=== PATIENT | female | born 1940 | race Caucasian/White ===

== ENCOUNTER 2017-03-09 10:03 | Inpatient (IN) | payer MEDICARE, OTHER ==
[~2017-03-09] VITALS: Ht 154.9 cm; Wt 92.0 kg
[2017-03-09] VITALS (7 sets, daily range): BP systolic 161–168; BP diastolic 78; PULSE 70–87; RESP 18–20; TEMP 98.3; Ht 154.9 cm; Wt 92.0 kg
[2017-03-09 10:29] LABS: BASOPHIL # 0.1 10^3/ul (0.0-0.1); BASOPHILS % 0.6 % (0.0-2.0); EOSINOPHILS # 0.4 10^3/ul (0.0-0.5); EOSINOPHILS % 3.3 % (0.0-7.0); HEMATOCRIT 41.7 % (37.0-47.0); HEMOGLOBIN 13.3 g/dl (12.0-16.0); LYMPHOCYTES # 4.1 10^3/ul (0.8-2.9); LYMPHOCYTES % 37.2 % (15.0-51.0); MEAN CORPUSCULAR HGB CONC 31.9 g/dl (32.0-37.0); MEAN PLATELET VOLUME 10.4 fl (7.4-10.4); MONOCYTE # 1.2 10^3/ul (0.3-0.9); MONOCYTES % 10.6 % (0.0-11.0); NEUTROPHIL # 5.2 10^3/ul (1.6-7.5); PLATELET COUNT 351 10^3/UL (140-415); RED BLOOD COUNT 4.58 10^6/ul (4.20-5.40); RED CELL DISTRIBUTION WIDTH 13.6 % (11.5-14.5); WHITE BLOOD COUNT 10.9 10^3/ul (4.8-10.8)
[2017-03-09 10:30] LABS: AADO2 Arterial 320.7 mmHg (7.0-24.0); Allen Test ACCEPTAB; Arterial Base Excess -3.1 mmol/L (-3.0-3); Arterial COHb 0.3 % (0.0-3.0); Arterial Fraction of Oxyhgb 99.1 % (93.0-99.0); Arterial HCO3 25.1 mmol/L (22.0-26.0); Arterial MetHb 0.2 % (0.0-1.5); Arterial Total Hemglobin 13.7 g/dl (12.0-18.0); Blood Gas IEPAP 15/5; MODE MASK - BIPAP
[2017-03-09 10:53] LABS: INR 0.94; PROTIME 12.7 Sec (11.9-14.9)
[2017-03-09 10:55] LABS: ALBUMIN 3.9 g/dl (3.3-4.9); BILIRUBIN,INDIRECT 0.1 mg/dl (0-1.1); BILIRUBIN,TOTAL 0.1 mg/dl (0.2-1.3); CREATININE 0.93 mg/dl (0.44-1.00); POTASSIUM 3.7 mmol/L (3.5-5.1); TOTAL PROTEIN 7.8 g/dl (6.1-8.1)
[2017-03-09] MEDS ORDERED: SOD CHLORIDE 0.9% 100 ML ONE (11:01)
[2017-03-09] MEDS ORDERED: IOHEXOL 100 ML ONE (11:01)
--- NOTE | 2017-03-09 11:02 | RADRPT ---
PROCEDURE: Chest x-ray CLINICAL INDICATION: Shortness of breath TECHNIQUE: Chest single view COMPARISON: None FINDINGS: There is moderate cardiomegaly and an sclerotic aortic calcification. Increased bilateral interstiti al markings are seen. This may represent interstitial edema versus interstitial pneumonia. Costophre thuy angles are sharp. Bones are osteopenic. IMPRESSION: 1. Moderate cardiomegaly and an sclerotic aortic calcification. 2. Increased bilateral interstitial markings may represent interstitial edema versus interstitial p neumonia RPTAT: HH .Jesus Gao MD, MD Date Time Electronically viewed and signed by .Jesus Gao MD, MD on 03/09/2017 11:02 .W/
[2017-03-09 11:06] LABS: TROPONIN-I 0.042 ng/ml (0.00-0.12)
[2017-03-09] MEDS ORDERED: SODIUM CHLORIDE 0.9% 1L BAG IV* STA (11:20)
[2017-03-09] MEDS ORDERED: CEFEPIME 2GM/50 ML (PMX) 50 ML IVPB STA (11:20)
[2017-03-09] MEDS ORDERED: VANCOMYCIN 1 GM (PMX) 250 ML IVPB ONE (11:30)
--- NOTE | 2017-03-09 11:57 | RADRPT ---
PROCEDURE: CTA Chest with contrast and with 3-D reconstructions CLINICAL INDICATION: Shortness of breath, pulmonary embolism TECHNIQUE: The study was performed utilizing multidetector CT scanner. Direct spiral axial section s were obtained from the thoracic inlet to the upper abdomen with the use of intravenous contrast ma terial (100 cc of Omnipaque 350). Sagittal, coronal and 3-D reformations were obtained. The images w ere reviewed on a PACS workstation. DLP 875.07 mGycm CTDIvol 7.04, 147.88, 7.04, 49.29, 19.94 mGy One or more of the following dose reduction techniques were used: - Automated exposure control. - Adjustment of the mA and/or kV according to patient size. - Use of iterative reconstruction technique. COMPARISON: No prior studies are available for comparison. FINDINGS: There are no pulmonary emboli. The right pulmonary artery measures up to 3.5 cm in diameter, possibly due to pulmonary artery hyper tension. There are trace bilateral pleural effusions. There is moderate pulmonary vascular congestion. There is no pneumothorax. Heart size is within normal limits. There is no pericardial fluid. The aorta is within normal limi ts. There are no enlarged axillary or mediastinal lymph nodes. 2 sub-centimeter dystrophic calcifications are identified adjacent to the gallbladder within the migel er which are likely the sequela of prior infection/inflammation. Osseous and soft tissue structures are within normal limits. IMPRESSION: No CT evidence for pulmonary embolus. Dilatation of the right pulmonary artery to 3.5 cm, possibly due to pulmonary artery hypertension. Moderate pulmonary vascular congestion with trace bilateral pleural effusions. RPTAT: EE Physician Lucho Date Time Electronically viewed and signed by Physician Lucho on 03/09/2017 11:57 /
[2017-03-09] MEDS ORDERED: ONDANSETRON 4 MG INJ IV PRN ×2 (12:00→13:30)
[2017-03-09] MEDS ORDERED: ACETAMINOPHEN 325 MG TAB PO PRN ×2 (12:00→13:30)
[2017-03-09] MEDS ORDERED: HYDR-3672 PO (12:45)
[2017-03-09] MEDS ORDERED: BENA40TA41 PO (12:45)
[2017-03-09] MEDS ORDERED: CHOL100062 PO (12:46)
[2017-03-09] MEDS ORDERED: CLOP75TA27 PO (12:46)
[2017-03-09] MEDS ORDERED: DICL75TA2 PO (12:46)
[2017-03-09] MEDS ORDERED: SIMV20TA PO (12:46)
--- NOTE | 2017-03-09 12:59 | ERD ---
ER Documentation Chief Complaint Chief Complaint TOMY RA FOR EVAL OF SOB. ON CPAP ON ARRIVAL. HPI Patient is a 76-year-old female with CHF, COPD, hypertension, and diabetes who presents with shortness of breath. The patient was brought in by ambulance. Please note the history and physical exam is limited secondary to the patient's shortness of breath at this time. The patient was cyanotic and wheezing per paramedics. They placed her on CPAP and she improved but is still having respiratory distress. She was given nitroglycerin and a nebulizer treatment. Upon review of old medical records this is the patient's first visit to the emergency department. ROS All systems reviewed and are negative except as per history of present illness. Medications Home Meds Reported Medications Cholecalciferol* (Vitamin D3*) 1,000 Unit Tablet, 2000 UNIT PO DAILY, TAB 03/09/17 Clopidogrel Bisulfate (Clopidogrel) 75 Mg Tablet, 75 MG PO DAILY, #30 TAB 03/09/17 Diclofenac Sodium* (Diclofenac Sodium*) 75 Mg Tablet.dr, 75 MG PO BID, #60 TAB 03/09/17 Simvastatin* (Zocor*) 20 Mg Tablet, 20 MG PO QHS, #30 TAB 03/09/17 Benazepril Hcl* (Benazepril Hcl*) 40 Mg Tablet, 40 MG PO DAILY, #30 TAB 03/09/17 Hydralazine Hcl* (Hydralazine Hcl*) 50 Mg Tab, 100 MG PO TID, #180 TAB 03/09/17 Allergies Allergies: Coded Allergies: No Known Allergy (Unverified , 03/09/17) PMhx/Soc History of Surgery: No Anesthesia Reaction: No Hx Neurological Disorder: No Hx Respiratory Disorders: No Hx Cardiac Disorders: No Hx Psychiatric Problems: No Hx Miscellaneous Medical Probl: No Hx Alcohol Use: No Hx Substance Use: No Hx Tobacco Use: No Smoking Status: Never smoker FmHx Unable to obtain Physical Exam Vitals Vital Signs Date Time Temp Pulse Resp B/P Pulse Ox O2 Delivery O2 Flow Rate FiO2 03/09/17 12:00 98.3 87 20 156/57 100 BIPAP 10.0 03/09/17 11:00 98.3 87 20 156/57 100 BIPAP 10.0 03/09/17 10:26 10 03/09/17 10:21 73 99 100 03/09/17 10:08 97.6 89 30 156/95 96 Physical Exam Const: Severe distress Head: Atraumatic Eyes: Normal Conjunctiva ENT: Normal External Ears, Nose and Mouth. Neck: Full range of motion..~ No meningismus. Resp: Decreased breath sounds bilaterally Cardio: Regular rate and rhythm, no murmurs Abd: Soft, non tender, non distended. Normal bowel sounds Skin: No petechiae or rashes Back: No midline or flank tenderness Ext: No cyanosis, or edema Neur: Awake but confused Result Diagram: 03/09/17 1015 03/09/17 1015 Results 24 hrs Laboratory Tests Test 03/09/17 10:06 03/09/17 10:15 Blood Gas Specimen Source Blood arterial Arterial Blood Date Drawn 03/09/2017 10:20:06 AM Arterial Blood pH (Temp corrected) 7.252 Arterial Blood pCO2 (Temp correct) 58.2mmhg Arterial Blood pO2 (Temp corrected) 334.1mmHG Arterial Blood HCO3 25.1mmol/L Arterial Blood Base Excess -3.1mmol/L Arterial Blood Oxygen Saturation 99.6mmHG Freddie Test ACCEPTAB Arterial Blood Gas Puncture Site Right Radial Arterial Blood Carboxyhemoglobin 0.3% Arterial Blood Methemoglobin 0.2% Blood Gas A-a O2 Differential 320.7mmHg Oxyhemoglobin Percent 99.1% Total Hemoglobin 13.7g/dl Blood Gas Temperature 37.0C Blood Gas Respiration Rate 12.0 Blood Gas Actual Respiration Rate 21 Blood Gas Modality MASK - BIPAP FiO2 100.0% Blood Gas IPAP/EPAP Ratio 15/5 Blood Gas Critical [facility] Notified Whom JLD Blood Gas Notified Time 03/09/2017 10:30:05 AM White Blood Count 10.910^3/ul Red Blood Count 4.5810^6/ul Hemoglobin 13.3g/dl Hematocrit 41.7% Mean Corpuscular Volume 91.0fl Mean Corpuscular Hemoglobin 29.0pg Mean Corpuscular Hemoglobin Concent 31.9g/dl Red Cell Distribution Width 13.6% Platelet Count 57603^3/UL Mean Platelet Volume 10.4fl Neutrophils % 48.0% Lymphocytes % 37.2% Monocytes % 10.6% Eosinophils % 3.3% Basophils % 0.6% Nucleated Red Blood Cells % 0.0/100WBC Neutrophils # 5.210^3/ul Lymphocytes # 4.110^3/ul Monocytes # 1.210^3/ul Eosinophils # 0.410^3/ul Basophils # 0.110^3/ul Nucleated Red Blood Cells # 0.010^3/ul Prothrombin Time 12.7Sec Prothrombin Time Ratio 1.0 INR International Normalized Ratio 0.94 Activated Partial Thromboplast Time 23.0Sec Sodium Level 143mmol/L Potassium Level 3.7mmol/L Chloride Level 106mmol/L Carbon Dioxide Level 24mmol/L Anion Gap 17 Blood Urea Nitrogen 20mg/dl Creatinine 0.93mg/dl Glucose Level 201mg/dl Lactic Acid Level 5.1mmol/L Calcium Level 9.0mg/dl Total Bilirubin 0.1mg/dl Direct Bilirubin 0.00mg/dl Indirect Bilirubin 0.1mg/dl Aspartate Amino Transf (AST/SGOT) 41IU/L Alanine Aminotransferase (ALT/SGPT) 37IU/L Alkaline Phosphatase 90IU/L Troponin I 0.042ng/ml Total Protein 7.8g/dl Albumin 3.9g/dl Globulin 3.90g/dl Albumin/Globulin Ratio 1.00 Current Medications Medications (Trade) Dose Ordered Sig/Bartolo Route PRN Reason Start Time Stop Time Status Last Admin Dose Admin IV Flush 10 ml 10 ml STK-MED ONCE .ROUTE 03/09/17 11:01 03/09/17 11:02 DC Sodium Chloride 100 ml @ ud STK-MED ONCE .ROUTE 03/09/17 11:01 03/09/17 11:02 DC Iohexol (Omnipaque) 100 ml @ ud STK-MED ONCE .ROUTE 03/09/17 11:01 03/09/17 11:02 DC Sodium Chloride 2480 ml 2,480 ml BOLUS OVER 2 HOURS STAT IV* 03/09/17 11:20 03/09/17 11:21 DC 03/09/17 12:21 Cefepime HCl 50 ml @ 100 mls/hr ONCE STAT IVPB 03/09/17 11:20 03/09/17 11:49 DC 03/09/17 12:19 Vancomycin HCl (Vancocin) 250 ml @ 125 mls/hr ONCE ONCE IVPB 03/09/17 11:30 03/09/17 13:29 Ondansetron HCl (Zofran Inj) 4 mg ER BRIDGE PRN IV NAUSEA AND/OR VOMITING 03/09/17 12:00 03/10/17 11:59 Acetaminophen (Tylenol Tab) 650 mg ER BRIDGE PRN PO MILD PAIN/FEVER 03/09/17 12:00 03/10/17 11:59 Procedures/MDM EKG read by me: Rate/Rhythm: Regular rate and rhythm at a normal rate Intervals: Normal Impression: No evidence of ischemia or arrhythmia Chest x-ray shows infiltrates per radiology. Admit MDM: Patient's infectious symptoms have not stabilized and the patient is at risk of rapid decompensation. The patient will be admitted for careful hydration, antibiotic therapy, and infectious source control. Severe Sepsis criteria: Infectious source: Pneumonia End organ damage indicated by: Lactate greater than 2 Sepsis Management: Time of recognition of sepsis: 10:15 AM Within 3 hours of recognition: Blood cultures x 2 before broad-spectrum antibiotics: Yes 30 ml/kg NS bolus Completed Initial lactate 5.1 Repeat lactate pending Time of recognition of septic shock: 10:15 AM Septic Shock Assessment: Any lactic acid > 4.0 yes Persistent hypotension (SBP < 90 or 40 mmHg drop, MAP < 65) despite 30 mL/kg IV fluid bolus No Volume Re-assessment for Septic Shock (post 30 ml/kg bolus): Temp 98.3, BP 156/57, HR 87, RR 20, Pox 100% Heart Regular rate & rhythm Lungs decreased breath sounds bilaterally Skin Warm & dry Cap Refill Less than 2 seconds Peripheral pulses Radially present Persistent Hypotension Treatment: Comfort care No Central line Not Required Vasopressor started Not required I considered further perfusion assessment with CVP measurement, SCVO2, bedside ultrasound volume assessment, passive leg raise, trial of further fluid bolus. And proceeded with 30 ml/kg fluid bolus of NSS, broad spectrum antibiotics, and admission. Accepting Care Team Current data and ongoing care discussed. Admitting Physician: Dr. Worrell from the panel team Registered Nurse Bone Marrow Transplant(s): None Outstanding Data: Culture results and repeat lactic acid Critical Care: Critical care time 35 minutes excluding all billable procedures Emergent fluid management while maintaining close respiratory support. Provision of immediate and broad-spectrum antibiotic therapy. Simultaneous assessment for possible sources in order to direct targeted therapy. Consideration for invasive and chemical support to prevent cardiopulmonary collapse. Departure Diagnosis: Primary Impression: Septic shock Additional Impressions: Shortness of breath Respiratory failure Chronicity: acute Respiratory failure complication: hypoxia and hypercapnia Qualified Code: J96.01 - Acute respiratory failure with hypoxia and hypercapnia Pneumonia Pneumonia type: due to unspecified organism Laterality: unspecified laterality Lung location: unspecified part of lung Qualified Code: J18.9 - Pneumonia due to infectious organism, unspecified laterality, unspecified part of lung Condition: Serious VEDA DALE MD Mar 09, 2017 12:59
[2017-03-09] MEDS ORDERED: ACETAMINOPHEN 650 MG SUPP PR PRN (13:30)
[2017-03-09] MEDS ORDERED: VANCOMYCIN IV PER PHARMACY XX SCH (13:30)
[2017-03-09] MEDS ORDERED: morphine 2 MG INJ IV PRN (13:30)
[2017-03-09] MEDS ORDERED: NACL 0.9% 3 ML SYG IV SCH (13:30)
[2017-03-09] MEDS ORDERED: GLUCAGON 1 MG INJ IM PRN (14:00)
[2017-03-09] MEDS ORDERED: GLUCOSE GEL 15 GRAM TUBE BUCCAL PRN (14:00)
[2017-03-09] MEDS ORDERED: GLUCOSE GEL 15 GRAM TUBE PO PRN ×2 (14:00)
[2017-03-09] MEDS ORDERED: DEXTROSE 50% 50 ML SYRINGE IV PRN ×2 (14:00)
--- NOTE | 2017-03-09 14:29 | HP ---
Date/Time of Note Date/Time of Note DATE: 03/09/17 TIME: 14:10 Assessment/Plan VTE Prophylaxis VTE Prophylaxis Intervention: LMWH Assessment/Plan Chief Complaint/Hosp Course 76-year-old female with past medical history of coronary artery disease with stent placed, COPD, congestive heart failure, hypertension, hyperlipidemia, peripheral vascular disease, brought to the emergency room for evaluation of worsening shortness of breath and wheezing started this morning who found to have hypoxic respiratory failure with pneumonia and sepsis. 1. Hypercapnic/Hypoxemic respiratory failure requiring BiPAP, Most likely 2/2 COPD exacerbation .Differentials considered and will be worked up: Possible CHF exacerbation. Status: Acute. Remarks: Needs inpatient admission -Pulmonary consult. -Titrate O2 down to keep SPO2 greater than 92%. -[id number] and as needed nebulizers, judicious IV steroid. -Follow-up ABGs and x-rays as needed. 2. Sepsis most likely secondary to pneumonia. Status: Acute. Remarks: Needs IV antibiotics. -Patient will be placed on cefepime and vancomycin. Judicious IV fluids in the setting of #5 -Follow-up cultures 3. Chronic obstructive pulmonary disease. Status: Chronic. Remarks: In exacerbation. -[id number] and as needed nebulizers, IV steroids. -Patient needs better outpatient management on COPD maintenance on discharge. 4. Coronary artery disease with PTCA/stents. Status: Chronic. Remarks: Stable -Resume Plavix/BILLIE inhibitors/Statin. 5. Reported history of congestive heart failure. Status: Chronic. Remarks: Possible exacerbation. -Obtain 2D echocardiogram. -Insert Borrero, monitor volume status closely and implement diuretics as needed. -Resume home medications 6. Essential hypertension. Status: Chronic. Remarks: Stable. -Resume BILLIE inhibitors and hydralazine that patient takes at home. 7. Hyperlipidemia. Status: Chronic. -Resume statin. Obtain a lipid panel as well. 8. Peripheral vascular disease with venous stasis ulcers. Status post vascular intervention to bilateral lower extremity. Status: Chronic. Remarks: Stable. -Continue Plavix. 9. Vitamin D deficiency. Status: Chronic. -Resume vitamin D supplements that patient takes at home. DVT prophylaxis: Lovenox PUD prophylaxis: Pepcid We will order a bedside swallow eval and if patient passed, she will be advanced with low-cholesterol, low-fat, 2 g sodium diet. Rest of the management depend on hospital course and recommendation from [employer] security consultant. Approximately 60 minutes was spent on this history and physical. Patient was seen in collaboration with Problems: HPI/ROS Admit Date/Time Admit Date/Time Hx of Present Illness This is a 76-year-old female who is also a former smoker with multiple comorbidities including COPD, venous stasis ulcers of left lower extremity with stenting to bilateral femoral arteries a month ago, coronary artery disease with stenting in the past, congestive heart failure, hypertension , dyslipidemia, vitamin D deficiency, degenerative joint disease, who was brought to the emergency room for evaluation of worsening shortness of breath and wheezing started this morning. In the emergency room, patient was placed on CPAP and was given nebulizer treatment with improvement in her symptoms. A blood gas showed pH 7.252, PCO2 58.2, bicarb 25.1, PO2 334.1 and was done on 100 % FiO2 on BiPAP. Chest x-ray showed increased bilateral interstitial markings, interstitial edema versus interstitial pneumonia. There was moderate cardiomegaly. A CTA chest was negative for any pulmonary embolism. There was moderate pulmonary vascular congestion with trace bilateral pleural effusion in the CT. Patient's initial labs showed WBC 10,900, lactic acid 5.1. Vital signs within acceptable range. Patient was given cefepime, IV vancomycin and fluid resuscitation for sepsis in the emergency room and was then admitted. At my encounter with the patient, she denied any chest pain, palpitation, nausea , vomiting, abdominal pain, dizziness, lightheadedness, or other constitutional symptoms. Patient's work of breathing heart tremendously improved and she is saturating normal on 4 L nasal cannula. ROS A 12 point review of system was assessed and is negative other than what is mentioned in HPI. PMH/Family/Social Past Medical History See HPI Past Surgical History See HPI Social History Former smoker who quit 5 years ago. Former amphetamine use. Smoking Status: Never smoker Exam/Review of Systems Vital Signs Vitals Vital Signs Date Time Temp Pulse Resp B/P Pulse Ox O2 Delivery O2 Flow Rate FiO2 03/09/17 12:58 95 3.0 03/09/17 12:00 98.3 87 20 156/57 BIPAP 03/09/17 10:21 100 Exam Exam General: Overweight, chronically ill looking female, not in any acute distress . HEENT: Normocephalic, Atraumatic, No laceration or hematoma; Eyes: PEERL, Conjunctiva clear, Anicteric sclera Neck: Supple without any lymphadenopathy, nontender, no JVD, no carotid bruits, trachea midline, no thyromegaly Cardiac: S1, S2 auscultated, regular rhythm and rate, no mumurs or gallop Pulmonary: Diminished breath sound bibasilar. Scattered wheezing upper lobes. Normal respiratory effort. GI: Abdomen normal to inspection. Soft, non tender, non- distended, no masses, no rebound tenderness or guarding. Bowel sounds active on all four quadrants Genitourinary: Deferred Extremities: Left lower extremity with intact dressing. No cyanosis, clubbing, or edema. Pulses [2+] bilaterally. Full ROM on all four extremities. No focal weakness appreciated. Neurologic: Alert to person, place, time, and situation. Affect appropriate, intact sensation. Skin: Clean,dry, and intact. No ecchymosis, no rashes, or lesions Labs Result Diagram: 03/09/17 1015 03/09/17 1015 Medications Medications Current Medications Vancomycin HCl (Vancocin) 250 ml @ 125 mls/hr ONCE ONCE IVPB Last administered on 03/09/17t 13:07; Admin Dose 125 MLS/HR; Start 03/09/17 at 11: 30; Stop 03/09/17 at 13:29 MARLENE MITCHELL NP Mar 09, 2017 14:22
[2017-03-09] MEDS ORDERED: METHYLPREDNISOLONE 125 MG INJ IV ONE (14:30)
[2017-03-09] MEDS ORDERED: ALBUTEROL/IPRATROPIUM (NEB) 3 ML AMP HHN PRN (14:30)
[2017-03-09] MEDS: SOD CHLORIDE 0.9% 1,000 ML IV SCH (14:45)
[2017-03-09] MEDS ORDERED: OXYB5TAB22 PO (15:21)
[2017-03-09] MEDS ORDERED: PARO20TA58 PO (15:21)
[2017-03-09] MEDS ORDERED: VANCOMYCIN 500MG/NS (PMX) 100 ML IVPB SCH (15:30)
[2017-03-09] MEDS: INSULIN ASPART [NOVOLOG] 3 ML PEN SC SCH ×2 (17:55→21:00)
[2017-03-09] MEDS: ALBUTEROL/IPRATROPIUM (NEB) 3 ML AMP HHN SCH (19:59)
--- NOTE | 2017-03-09 20:20 | CONS ---
DATE OF ADMISSION: 03/09/2017 DATE OF CONSULTATION: 03/09/2017 TYPE OF CONSULTATION: Pulmonary. REASON FOR CONSULTATION: Shortness of breath. Thank you, Dr. Worrell, for this consultation. HISTORY OF PRESENT ILLNESS: This is a 76-year-old lady with a longstanding history of tobacco use, quit smoking 4 years ago, comes in with a several-day history of increasing shortness of breath, ort hopnea, PND, cough and congestion, found on chest x-ray to have bilateral infiltrates, mild leukocyt osis and lactic acidosis with a pH of 7.1 and initial arterial blood gas demonstrated hypercapnia wi th pH of 7.25, pCO2 of 58, pO2 of 334, bicarbonate 25. PAST MEDICAL HISTORY: Tobacco use, peripheral vascular disease status post recent revascularization of left lower extremity by Dr. Miranda at [facility], hypertension, hyperlipidemia. MEDICATIONS: Per chart. ALLERGIES: NONE. SOCIAL HISTORY: She is an ex-smoker, quit smoking 4 years ago, prior to that half pack per day for many years. No alcohol, no history of drug use. FAMILY HISTORY: Noncontributory. SYSTEMS REVIEW: A 12-point review of systems negative other than that mentioned above. PHYSICAL EXAMINATION: GENERAL: Well-nourished, well-developed lady, comfortable at rest, talking in full and complete sen tences. VITAL SIGNS: Currently afebrile. Pulse is 87, blood pressure 156/60, O2 saturation 96% on 3 L nasa l cannula. NECK: Supple. No JVD or lymphadenopathy. CARDIAC: S1, S2, no added sounds or murmurs. CHEST: Diminished air entry bilaterally. ABDOMEN: Soft, nontender. No guarding or rebound. EXTREMITIES: No cyanosis, clubbing, or edema. NEUROLOGIC: Grossly intact. LABORATORY DATA: ABG: pH 7.25, pCO2 of 58, pO2 334. White count 10.9, hemoglobin 13.3. Lactic ac id initially 5.1, now 1.1. INR was 0.94. DIAGNOSTIC DATA: Chest CT angiogram showed no pulmonary embolus, but patchy bilateral infiltrates. Chest x-ray showed mild cardiomegaly, interstitial edema versus pneumonia. EKG showed no acute isc hemic changes. IMPRESSION AND PLAN: 1. Hypoxemic and hypercapnic, history of respiratory failure, likely secondary to combination of: 1. Chronic obstructive pulmonary disease exacerbation. 2. Healthcare-associated pneumonia with possible component of influenza. 3. Underlying obstructive sleep apnea. 4. Underlying chronic obstructive pulmonary disease. The patient will require 1. Bronchodilators. 2. Supplemental O2. 3. Short steroid taper. 4. Wound care evaluation of left lower extremity. 5. DVT and GI prophylaxis. 6. Outpatient sleep study and pulmonary function testing. Dictated By: FROYLAN SUAZO/PEPE Conf#: [id number] DID#: [id number]
[2017-03-09] MEDS ORDERED: PAROXETINE 20 MG TAB PO SCH (21:00)
[2017-03-09] MEDS ORDERED: OXYBUTYNIN (XL) 5 MG TAB PO SCH (21:00)
[2017-03-09] MEDS: ATORVASTATIN 10 MG TAB PO SCH (21:16)
[2017-03-09] MEDS: FAMOTIDINE 20 MG INJ IV SCH (21:16)
[2017-03-09] MEDS: CEFEPIME 1GM/50 ML (PMX) 50 ML IVPB SCH (21:16)
[2017-03-09] MEDS: METHYLPREDNISOLONE 40 MG INJ IV SCH (22:00)
[2017-03-10] VITALS (15 sets, daily range): BP systolic 139–173; BP diastolic 62–73; PULSE 70–141; RESP 16–20
[2017-03-10] MEDS: ALBUTEROL/IPRATROPIUM (NEB) 3 ML AMP HHN SCH ×5 (00:54→20:13)
[2017-03-10] MEDS: ACCU-CHEK XX SCH (02:00)
[2017-03-10] MEDS ORDERED: hydrALAzine 20 MG INJ IV PRN (02:00)
[2017-03-10] MEDS: METHYLPREDNISOLONE 40 MG INJ IV SCH ×3 (06:09→21:05)
[2017-03-10 07:21] LABS: ADD UMIC YES; UR ASCORBIC ACID NEGATIVE (NEGATIVE); UR BILIRUBIN (Dip) NEGATIVE (NEGATIVE); UR BLOOD (Dip) NEGATIVE (NEGATIVE); UR CLARITY CLEAR (CLEAR); UR COLOR YELLOW (YELLOW); UR GLUCOSE (Dip) 1+ mg/dL (NEGATIVE); UR KETONES (Dip) NEGATIVE (NEGATIVE); UR LEUKOCYTE ESTERASE (Dip) NEGATIVE Leu/ul (NEGATIVE); UR MUCUS FEW /HPF (NONE SEEN); UR NITRITE (Dip) NEGATIVE (NEGATIVE); UR RBC 4 /HPF (0-5); UR SPECIFIC GRAVITY (Dip) 1.045 (1.003-1.030); UR TOTAL PROTEIN (Dip) 2+ mg/dl (NEGATIVE); UR UROBILINOGEN (Dip) NEGATIVE (NEGATIVE)
[2017-03-10 08:02] LABS: BASOPHILS % 0.1 % (0.0-2.0); HEMATOCRIT 35.7 % (37.0-47.0); HEMOGLOBIN 11.4 g/dl (12.0-16.0); LYMPHOCYTES % 13.3 % (15.0-51.0); MEAN CORPUSCULAR HEMOGLOBIN 28.6 pg (29.0-33.0); MEAN CORPUSCULAR HGB CONC 31.9 g/dl (32.0-37.0); MEAN CORPUSCULAR VOLUME 89.5 fl (82.0-101.0); MEAN PLATELET VOLUME 10.5 fl (7.4-10.4); MONOCYTE # 0.1 10^3/ul (0.3-0.9); MONOCYTES % 1.5 % (0.0-11.0); NEUTROPHIL # 6.3 10^3/ul (1.6-7.5); NEUTROPHILS % 84.7 % (39.0-77.0); PLATELET COUNT 309 10^3/UL (140-415); RED BLOOD COUNT 3.99 10^6/ul (4.20-5.40); RED CELL DISTRIBUTION WIDTH 13.3 % (11.5-14.5); WHITE BLOOD COUNT 7.4 10^3/ul (4.8-10.8)
[2017-03-10 08:20] LABS: ALBUMIN 3.2 g/dl (3.3-4.9); ALBUMIN/GLOBULIN RATIO 0.94; BILIRUBIN,INDIRECT 0.2 mg/dl (0-1.1); BILIRUBIN,TOTAL 0.2 mg/dl (0.2-1.3); CHOL/HDL RATIO 1.8 RATIO; CREATININE 0.92 mg/dl (0.44-1.00); MAGNESIUM 1.8 mg/dl (1.7-2.5); PHOSPHORUS 3.4 mg/dl (2.5-4.9); POTASSIUM 3.8 mmol/L (3.5-5.1); TOTAL PROTEIN 6.6 g/dl (6.1-8.1)
[2017-03-10] MEDS: CEFEPIME 1GM/50 ML (PMX) 50 ML IVPB SCH (08:39)
[2017-03-10] MEDS: FAMOTIDINE 20 MG INJ IV SCH (08:39)
[2017-03-10] MEDS: BENAZEPRIL 40 MG TAB PO SCH (08:39)
[2017-03-10] MEDS: CLOPIDOGREL 75 MG TAB PO SCH (08:39)
[2017-03-10] MEDS: CHOLECALCIFEROL 1,000 UNIT TAB PO SCH (08:39)
[2017-03-10 08:44] LABS: THYROID STIMULATING HORMONE 0.53 MIU/L (0.465-4.680)
[2017-03-10] MEDS: INSULIN ASPART [NOVOLOG] 3 ML PEN SC SCH ×4 (08:50→21:23)
[2017-03-10] MEDS: ENOXAPARIN 40 MG/0.4 ML SYG SC SCH (08:50)
[2017-03-10] MEDS: FUROSEMIDE 40 MG INJ IV SCH (12:22)
--- NOTE | 2017-03-10 12:44 | PN ---
Date/Time of Note Date/Time of Note DATE: 03/10/17 TIME: 12:33 Assessment/Plan VTE Prophylaxis VTE Prophylaxis Intervention: LMWH Lines/Catheters IV Catheter Type (from Nrsg): Peripheral IV Assessment/Plan Chief Complaint/Hosp Course 1. Acute hypercapnic and hypoxic respiratory distress likely secondary to CHF exacerbation and COPD exacerbation CTA chest shows pulmonary edema, no PE Start Lasix Follow-up and 2D echo Continue BiPAP Neurology consultation appreciated -Titrate O2 down to keep SPO2 greater than 92%. -[id number] and as needed nebulizers, IV steroid. -Follow-up ABGs and x-rays as needed. 2. Sepsis possibly secondary to COPD exacerbation/bronchitis Switch antibiotics to Rocephin and azithromycin 3. History of CHF Follow-up on echo Lasix started Continue home meds 4. Coronary artery disease with PTCA/stents. Continue Plavix/BILLIE inhibitors/Statin. 5. Peripheral vascular disease with venous stasis ulcers. Status post vascular intervention to bilateral lower extremity. -Continue Plavix. 6. Essential hypertension. Continue BILLIE inhibitors and hydralazine that patient takes at home. 7. Hyperlipidemia. Continue statin, LDL at 53 Prophylaxis: Lovenox Problems: Subjective 24 Hr Interval Summary Respiratory: shortness of breath Exam/Review of Systems Vital Signs Vitals Vital Signs Date Time Temp Pulse Resp B/P Pulse Ox O2 Delivery O2 Flow Rate FiO2 03/10/17 11:28 98.1 93 16 144/67 95 03/10/17 05:32 Nasal Cannula 2.0 03/10/17 03:03 30 Intake and Output 03/09/17 03/09/17 03/10/17 15:00 23:00 07:00 Intake Total 50 ml 530 ml 440 ml Balance 50 ml 530 ml 440 ml Exam Constitutional: alert, oriented Respiratory: clear to auscultation Cardiovascular: regular rate and rhythm Gastrointestinal: soft, No distended Musculoskeletal: nl extremities to inspection Results Result Diagram: 03/10/17 0649 03/10/17 0649 Results 24 hrs Laboratory Tests Test 03/09/17 14:23 03/09/17 18:00 03/09/17 21:12 03/10/17 02:00 Lactic Acid Level 0.9 Bedside Glucose 124 178 Urine Color YELLOW Urine Clarity CLEAR Urine pH 5.0 Urine Specific [place] 1.045 H Urine Ketones NEGATIVE Urine Nitrite NEGATIVE Urine Bilirubin NEGATIVE Urine Urobilinogen NEGATIVE Urine Leukocyte Esterase NEGATIVE Urine Microscopic RBC 4 Urine Microscopic WBC 4 Urine Mucus FEW A Urine Hemoglobin NEGATIVE Urine Glucose 1+ H Urine Total Protein 2+ H Test 03/10/17 06:49 03/10/17 08:37 White Blood Count 7.4 # Red Blood Count 3.99 L Hemoglobin 11.4 L Hematocrit 35.7 L Mean Corpuscular Volume 89.5 Mean Corpuscular Hemoglobin 28.6 L Mean Corpuscular Hemoglobin Concent 31.9 L Red Cell Distribution Width 13.3 Platelet Count 309 Mean Platelet Volume 10.5 H Neutrophils % 84.7 H Lymphocytes % 13.3 L Monocytes % 1.5 Eosinophils % 0.0 Basophils % 0.1 Nucleated Red Blood Cells % 0.0 Neutrophils # 6.3 Lymphocytes # 1.0 Monocytes # 0.1 L Eosinophils # 0.0 Basophils # 0.0 Nucleated Red Blood Cells # 0.0 Sodium Level 141 Potassium Level 3.8 Chloride Level 108 Carbon Dioxide Level 27 Anion Gap 10 # Blood Urea Nitrogen 19 Creatinine 0.92 Glucose Level 165 Hemoglobin A1c 5.8 Calcium Level 9.0 Phosphorus Level 3.4 Magnesium Level 1.8 Total Bilirubin 0.2 Direct Bilirubin 0.00 Indirect Bilirubin 0.2 Aspartate Amino Transf (AST/SGOT) 26 Alanine Aminotransferase (ALT/SGPT) 29 Alkaline Phosphatase 59 Total Protein 6.6 # Albumin 3.2 L Globulin 3.40 H Albumin/Globulin Ratio 0.94 Triglycerides Level 39 Cholesterol Level 134 LDL Cholesterol, Calculated 53 HDL Cholesterol 73 Cholesterol/HDL Ratio 1.8 Thyroid Stimulating Hormone (TSH) 0.530 Bedside Glucose 148 Medications Medications Current Medications Benazepril HCl (Lotensin) 40 mg DAILY PO Last administered on 03/10/17 08:39 ; Admin Dose 40 MG; Start 03/10/17 at 09:00 Cholecalciferol (Vitamin D) 2,000 unit DAILY PO Last administered on 08:39; Admin Dose 2,000 UNIT; Start 03/10/17 at 09:00 Clopidogrel Bisulfate (plaVIX) 75 mg DAILY PO Last administered on 03/10/17 08:39; Admin Dose 75 MG; Start 03/10/17 at 09:00 Hydralazine HCl (Apresoline) 100 mg TID PO Last administered on 03/10/17 08: 38; Admin Dose 100 MG; Start 03/09/17 at 21:00 Atorvastatin Calcium (Lipitor) 10 mg QHS PO Last administered on 03/09/17 21: 16; Admin Dose 10 MG; Start 03/09/17 at 21:00 Ondansetron HCl (Zofran Inj) 4 mg Q6H PRN IV NAUSEA AND/OR VOMITING; Start at 13:30 Acetaminophen (Tylenol Tab) 650 mg Q6H PRN PO PAIN LEVEL 1-3 OR FEVER; Start 03/09/17 at 13:30 Acetaminophen (Tylenol Supp) 650 mg Q6H PRN [place] PAIN LEVEL 1-3 OR FEVER; Start 03/09/17 at 13:30 Morphine Sulfate (morphine) 2 mg Q4H PRN IV SEVERE PAIN LEVEL 7-10; Start at 13:30 Famotidine (Pepcid Iv) 20 mg Q12 IV Last administered on 03/10/17 08:39; Admin Dose 20 MG; Start 03/09/17 at 21:00 Enoxaparin Sodium (Lovenox) 40 mg DAILY SC Last administered on 03/10/17 08: 50; Admin Dose 40 MG; Start 03/10/17 at 09:00 Diagnostic Test (Pha) 1 ea 1 ea 02 XX ; Start 03/10/17 at 02:00 Cefepime HCl 50 ml @ 100 mls/hr Q12 IVPB Last administered on 03/10/17 08:39 ; Admin Dose 100 MLS/HR; Start 03/09/17 at 21:00 Sodium Chloride (NS) 1,000 ml @ 40 mls/hr Q24H IV Last administered on 14:45; Admin Dose 40 MLS/HR; Start 03/09/17 at 13:30 Miscellaneous Information 1 ea NOTE XX ; Start 03/09/17 at 14:00 Glucose (Glutose) 15 gm Q15M PRN PO DECREASED GLUCOSE; Start 03/09/17 at 14:00 Glucose (Glutose) 22.5 gm Q15M PRN PO DECREASED GLUCOSE; Start 03/09/17 at 14: 00 Dextrose (D50w Syringe) 25 ml Q15M PRN IV DECREASED GLUCOSE; Start 03/09/17 at 14:00 Dextrose (D50w Syringe) 50 ml Q15M PRN IV DECREASED GLUCOSE; Start 03/09/17 at 14:00 Glucagon (Glucagen) 1 mg Q15M PRN IM DECREASED GLUCOSE; Start 03/09/17 at 14: 00 Glucose 15 gm 15 gm Q15M PRN BUCCAL DECREASED GLUCOSE; Start 03/09/17 at 14:00 Vancomycin HCl/ Sodium Chloride (Vancocin/Sodium Chloride) 250 ml @ 83.333 mls / hr Q24H IVPB ; Start 03/10/17 at 14:30 Methylprednisolone Sodium Succinate (Solu-Medrol) 40 mg Q8 IV Last administered on 03/10/17 06:09; Admin Dose 40 MG; Start 03/09/17 at 22:00 Hydralazine HCl (Apresoline) 10 mg Q4H PRN IV SBP > 160 Last administered on 02:04; Admin Dose 10 MG; Start 03/10/17 at 02:00 Furosemide (Lasix) 40 mg DAILY IV ; Start 03/10/17 at 09:30 JOSEPH MCNALLY Mar 10, 2017 12:44
[2017-03-10] MEDS ORDERED: AZITHROMYCIN 500MG/NS (PMX) 250 ML IVPB SCH (13:00)
--- NOTE | 2017-03-10 13:00 | CONS ---
Date/Time of Note Date/Time of Note DATE: 03/10/17 TIME: 12:57 Assessment/Plan Assessment/Plan Additional Assessment/Plan Assessment and recommendations; 1. Patient admitted with COPD exacerbation with interval improvement. 2. Underlying CHF. 3. History of hypertension and coronary artery disease. 4. Peripheral vascular disease. Continue current treatment. Patient responding well to current treatment regimen. Consultation Date/Type/Reason Admit Date/Time Mar 09, 2017 at 11:32 Initial Consult Date Type of Consultation: Pulmonary 24 HR Interval Summary Free Text/Dictation Patient's condition is improving. Reports decreased coughing and chest congestion. General exam; elderly woman, awake, currently in no distress. Exam/Review of Systems Vital Signs Vitals Vital Signs Date Time Temp Pulse Resp B/P Pulse Ox O2 Delivery O2 Flow Rate FiO2 03/10/17 12:00 85 03/10/17 11:28 98.1 16 144/67 95 03/10/17 05:32 Nasal Cannula 2.0 03/10/17 03:03 30 Intake and Output 03/09/17 03/09/17 03/10/17 15:00 23:00 07:00 Intake Total 50 ml 530 ml 440 ml Balance 50 ml 530 ml 440 ml Exam HEENT exam; supple neck, positive JVD. No lymphadenopathy. Patient has a multiple carious teeth. Pharynx is clear. Chest exam; diminished but clear breath sounds. S1-S2 audible, no murmurs. Regular rhythm. Abdomen exam; soft, nontender. No organomegaly. Bowel sounds audible. Extremity exam; no edema. There are bilateral lower extremity stasis ulcers. 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 Results Result Diagram: 03/10/17 0649 03/10/17 0649 Results 24 hrs Laboratory Tests Test 03/09/17 14:23 03/09/17 18:00 03/09/17 21:12 03/10/17 02:00 Lactic Acid Level 0.9 Bedside Glucose 124 178 Urine Color YELLOW Urine Clarity CLEAR Urine pH 5.0 Urine Specific [place] 1.045 H Urine Ketones NEGATIVE Urine Nitrite NEGATIVE Urine Bilirubin NEGATIVE Urine Urobilinogen NEGATIVE Urine Leukocyte Esterase NEGATIVE Urine Microscopic RBC 4 Urine Microscopic WBC 4 Urine Mucus FEW A Urine Hemoglobin NEGATIVE Urine Glucose 1+ H Urine Total Protein 2+ H Test 03/10/17 06:49 03/10/17 08:37 03/10/17 12:20 White Blood Count 7.4 # Red Blood Count 3.99 L Hemoglobin 11.4 L Hematocrit 35.7 L Mean Corpuscular Volume 89.5 Mean Corpuscular Hemoglobin 28.6 L Mean Corpuscular Hemoglobin Concent 31.9 L Red Cell Distribution Width 13.3 Platelet Count 309 Mean Platelet Volume 10.5 H Neutrophils % 84.7 H Lymphocytes % 13.3 L Monocytes % 1.5 Eosinophils % 0.0 Basophils % 0.1 Nucleated Red Blood Cells % 0.0 Neutrophils # 6.3 Lymphocytes # 1.0 Monocytes # 0.1 L Eosinophils # 0.0 Basophils # 0.0 Nucleated Red Blood Cells # 0.0 Sodium Level 141 Potassium Level 3.8 Chloride Level 108 Carbon Dioxide Level 27 Anion Gap 10 # Blood Urea Nitrogen 19 Creatinine 0.92 Glucose Level 165 Hemoglobin A1c 5.8 Calcium Level 9.0 Phosphorus Level 3.4 Magnesium Level 1.8 Total Bilirubin 0.2 Direct Bilirubin 0.00 Indirect Bilirubin 0.2 Aspartate Amino Transf (AST/SGOT) 26 Alanine Aminotransferase (ALT/SGPT) 29 Alkaline Phosphatase 59 Total Protein 6.6 # Albumin 3.2 L Globulin 3.40 H Albumin/Globulin Ratio 0.94 Triglycerides Level 39 Cholesterol Level 134 LDL Cholesterol, Calculated 53 HDL Cholesterol 73 Cholesterol/HDL Ratio 1.8 Thyroid Stimulating Hormone (TSH) 0.530 Bedside Glucose 148 212 Medications Medications Current Medications Benazepril HCl (Lotensin) 40 mg DAILY PO Last administered on 03/10/17 08:39 ; Admin Dose 40 MG; Start 03/10/17 at 09:00 Cholecalciferol (Vitamin D) 2,000 unit DAILY PO Last administered on 08:39; Admin Dose 2,000 UNIT; Start 03/10/17 at 09:00 Clopidogrel Bisulfate (plaVIX) 75 mg DAILY PO Last administered on 03/10/17 08:39; Admin Dose 75 MG; Start 03/10/17 at 09:00 Hydralazine HCl (Apresoline) 100 mg TID PO Last administered on 03/10/17 08: 38; Admin Dose 100 MG; Start 03/09/17 at 21:00 Atorvastatin Calcium (Lipitor) 10 mg QHS PO Last administered on 03/09/17 21: 16; Admin Dose 10 MG; Start 03/09/17 at 21:00 Ondansetron HCl (Zofran Inj) 4 mg Q6H PRN IV NAUSEA AND/OR VOMITING; Start at 13:30 Acetaminophen (Tylenol Tab) 650 mg Q6H PRN PO PAIN LEVEL 1-3 OR FEVER; Start 03/09/17 at 13:30 Acetaminophen (Tylenol Supp) 650 mg Q6H PRN [place] PAIN LEVEL 1-3 OR FEVER; Start 03/09/17 at 13:30 Morphine Sulfate (morphine) 2 mg Q4H PRN IV SEVERE PAIN LEVEL 7-10; Start at 13:30 Enoxaparin Sodium (Lovenox) 40 mg DAILY SC Last administered on 03/10/17 08: 50; Admin Dose 40 MG; Start 03/10/17 at 09:00 Diagnostic Test (Pha) 1 ea 1 ea 02 XX ; Start 03/10/17 at 02:00 Sodium Chloride (NS) 1,000 ml @ 40 mls/hr Q24H IV Last administered on 14:45; Admin Dose 40 MLS/HR; Start 03/09/17 at 13:30 Miscellaneous Information 1 ea NOTE XX ; Start 03/09/17 at 14:00 Glucose (Glutose) 15 gm Q15M PRN PO DECREASED GLUCOSE; Start 03/09/17 at 14:00 Glucose (Glutose) 22.5 gm Q15M PRN PO DECREASED GLUCOSE; Start 03/09/17 at 14: 00 Dextrose (D50w Syringe) 25 ml Q15M PRN IV DECREASED GLUCOSE; Start 03/09/17 at 14:00 Dextrose (D50w Syringe) 50 ml Q15M PRN IV DECREASED GLUCOSE; Start 03/09/17 at 14:00 Glucagon (Glucagen) 1 mg Q15M PRN IM DECREASED GLUCOSE; Start 03/09/17 at 14: 00 Glucose (Glutose) 15 gm Q15M PRN BUCCAL DECREASED GLUCOSE; Start 03/09/17 at 14:00 Methylprednisolone Sodium Succinate (Solu-Medrol) 40 mg Q8 IV Last administered on 03/10/17 06:09; Admin Dose 40 MG; Start 03/09/17 at 22:00 Hydralazine HCl (Apresoline) 10 mg Q4H PRN IV SBP > 160 Last administered on 02:04; Admin Dose 10 MG; Start 03/10/17 at 02:00 Furosemide 40 mg 40 mg DAILY IV Last administered on 03/10/17t 12:22; Admin Dose 40 MG; Start 03/10/17 at 09:30 Ceftriaxone Sodium (Rocephin) 50 ml @ 100 mls/hr Q24H IVPB ; Start 03/11/17 at 09:00 Azithromycin (Zithromax) 500 mg Q24H PO ; Start 03/10/17 at 14:00 CYNTHIA JC Mar 10, 2017 13:00
[2017-03-10] MEDS: AZITHROMYCIN 250 MG TAB PO SCH (13:32)
[2017-03-10] MEDS: SOD CHLORIDE 0.9% 1,000 ML IV SCH ×2 (13:33→18:43)
--- NOTE | 2017-03-10 13:55 | RADRPT ---
Echocardiogram Report Patient Name: ARLETTE SEN Gender: Female Date: 1940 Study Date: 10-Mar-2017 Foot Caster: SUSAN Location: E Ref. Physician: MARLENE MITCHELL Quality: Adequate Procedures: Transthoracic echocardiogram with complete 2D, M-Mode, and doppler examination, no subcostal images. Indications: Shortness of breath. 2D/M Mode Doppler Measurement Value Normal Ranges Measurement Value Normal Ranges AoR Diam MM 3.2 cm VICTORINO Vmax 1.3 cm2 LVIDd 2D 4.4 3.5 - 5.6 cm VICTORINO VTI 1.3 cm2 LVIDs 2D 3.3 2.1 - 4.1 cm AV Mean Rhys 1.7 m/sec LVPWd 2D 1.0 0.6 - 1.1 cm AV Mean PG 13.0 mmHg IVSd 2D 1.4 0.6 - 1.1 cm AV Peak Rhys 2.3 m/sec EDV 2D 88.1 cm3 AV Peak PG 21.7 mmHg ESV 2D 35.0 cm3 AV VTI 46.2 cm LA Dimen 2D 3.8 2.3 - 4.0 cm LVOT Mean Rhys 0.7 m/sec LVOT Diam 2.0 cm LVOT Mean PG 2.2 mmHg LVOT Peak Rhys 1.0 m/sec LVOT Peak PG 3.8 mmHg LVOT VTI 23.5 cm MV E Peak Rhys 1.4 m/sec MV A Peak Rhys 1.5 m/sec MV E/A 0.9 MV Decel Time 283 msec MV Decel [place] 5 MV E/A 0.9 Findings Left Ventricle: Normal left ventricular systolic function, not all ray imaged well. Normal left ventricular cavity size. Mild concentric left ventricular hypertrophy. Ejection fraction is visually estimated at 60 %. Tissue Doppler/Mitral Doppler indices are consistent with impaired relaxation (Stage I diastolic dysfunction). E/E`=16. Right Ventricle: Normal right ventricular size. Left Atrium: There is mild enlargement of left atrium this is best appreciated from the apical images. Right Atrium: The right atrium is normal in size. Atrial Septum: Not well visualized. Mitral Valve: Mild mitral leaflet calcification, also mild calcification imaged on the chordal structures. Trace mitral regurgitation. Aortic Valve: Mild aortic stenosis. Aortic valve Max velocity 2.30 m/sec. Max PG 22.00 mmHg. Mean PG 13.00 mmHg. Aortic valve area 1.60 cm2. Aortic cusps appear mildly calcified. Tricuspid Valve: Normal appearance and function of the tricuspid valve with trace physiologic regurgitation. Pulmonic Valve: Normal pulmonic valve appearance. No evidence of pulmonic regurgitation. Pericardium: Normal pericardium with no significant pericardial effusion. Aorta: Normal aortic root. IVC: The IVC is not well visualized. Pulmonary Artery: Not well visualized. Conclusions 1.Normal left ventricular systolic function, not all ray imaged well. Normal left ventricular cavity size. Mild concentric left ventricular hypertrophy. Ejection fraction is visually estimated at 60 %. Tissue Doppler/Mitral Doppler indices are consistent with impaired relaxation (Stage I diastolic dysfunction). E/E`=16. 2.Mild mitral leaflet calcification, also mild calcification imaged on the chordal structures. Trace mitral regurgitation. 3.Mild aortic stenosis. Aortic valve Max velocity 2.30 m/sec. Max PG 22.00 mmHg. Mean PG 13.00 mmHg. Aortic valve area 1.60 cm2. Aortic cusps appear mildly calcified. 4.Normal appearance and function of the tricuspid valve with trace physiologic regurgitation. Electronically Signed By: Larry Vogt 10-Mar-2017 13:54:02 -0800 Patient Name: ARLETTE SEN Study Date: 10-Mar-2017 [id number]
[2017-03-10] MEDS ORDERED: VANCOMYCIN 1.25 GM in SODIUM CHLORIDE 0.45 % 250 ML IVPB SCH (14:30)
[2017-03-10] MEDS: ATORVASTATIN 10 MG TAB PO SCH (21:04)
[2017-03-11] VITALS (8 sets, daily range): BP systolic 128–154; BP diastolic 61–85; PULSE 92–103; RESP 16–22
[2017-03-11] MEDS: ALBUTEROL/IPRATROPIUM (NEB) 3 ML AMP HHN SCH ×4 (00:35→13:41)
[2017-03-11] MEDS: ACCU-CHEK XX SCH (02:44)
[2017-03-11] MEDS: METHYLPREDNISOLONE 40 MG INJ IV SCH ×2 (05:10→13:17)
[2017-03-11 07:04] LABS: HEMOGLOBIN 11.2 g/dl (12.0-16.0); LYMPHOCYTES % 6.9 % (15.0-51.0); MEAN CORPUSCULAR HEMOGLOBIN 28.6 pg (29.0-33.0); MEAN CORPUSCULAR VOLUME 89.5 fl (82.0-101.0); MEAN PLATELET VOLUME 10.4 fl (7.4-10.4); MONOCYTE # 0.5 10^3/ul (0.3-0.9); MONOCYTES % 3.6 % (0.0-11.0); NEUTROPHIL # 12.3 10^3/ul (1.6-7.5); NEUTROPHILS % 88.1 % (39.0-77.0); PLATELET COUNT 311 10^3/UL (140-415); RED BLOOD COUNT 3.91 10^6/ul (4.20-5.40); RED CELL DISTRIBUTION WIDTH 13.7 % (11.5-14.5)
[2017-03-11 07:35] LABS: CALCIUM 9.2 mg/dl (8.4-10.2); CREATININE 1.05 mg/dl (0.44-1.00); POTASSIUM 4.1 mmol/L (3.5-5.1)
[2017-03-11] MEDS: CLOPIDOGREL 75 MG TAB PO SCH (08:53)
[2017-03-11] MEDS: CHOLECALCIFEROL 1,000 UNIT TAB PO SCH (08:53)
[2017-03-11] MEDS: FUROSEMIDE 40 MG INJ IV SCH (08:54)
[2017-03-11] MEDS: BENAZEPRIL 40 MG TAB PO SCH (08:54)
[2017-03-11] MEDS: INSULIN ASPART [NOVOLOG] 3 ML PEN SC SCH ×2 (08:55→12:22)
[2017-03-11] MEDS: ENOXAPARIN 40 MG/0.4 ML SYG SC SCH (08:55)
[2017-03-11] MEDS ORDERED: CEFTRIAXONE 1 GM/50 ML (PMX) 50 ML IVPB SCH (09:00)
[2017-03-11] MEDS ORDERED: AMLODIPINE 5 MG TAB PO SCH (09:00)
[2017-03-11] MEDS ORDERED: AMLO-145 PO (10:23)
[2017-03-11] MEDS ORDERED: FURO40TA4 PO (10:23)
--- NOTE | 2017-03-11 10:24 | PDOCDIS ---
Discharge Instructions CONDITION Patient Condition: Good HOME CARE INSTRUCTIONS: Diet Instructions: Reduced Sodium ACTIVITY: Activity Restrictions: No Restrictions FOLLOW UP/APPOINTMENTS Follow-up Plan F/U WITH YOUR PCP IN 1-2 WEEKS JOSEPH MCNALLY Mar 11, 2017 10:24
[2017-03-11] MEDS: SOD CHLORIDE 0.9% 1,000 ML IV SCH (12:11)
--- NOTE | 2017-03-11 12:17 | CONS ---
Date/Time of Note Date/Time of Note DATE: 03/11/17 TIME: 12:16 Assessment/Plan Assessment/Plan Additional Assessment/Plan Assessment and recommendations; 1. Patient admitted with hypoxemic and hypercapnic respiratory failure due to COPD with interval improvement. 2. History of severe COPD. 3. History of hypertension, coronary artery disease CHF and peripheral vascular disease. Continue current treatment. Will obtain follow-up ABG. Consultation Date/Type/Reason Admit Date/Time Mar 09, 2017 at 11:32 Type of Consultation: Pulmonary 24 HR Interval Summary Free Text/Dictation Patient's condition is stable. Reporting continued improvement in shortness of breath. General exam; elderly woman, awake, currently in no distress. Exam/Review of Systems Vital Signs Vitals Vital Signs Date Time Temp Pulse Resp B/P Pulse Ox O2 Delivery O2 Flow Rate FiO2 03/11/17 11:10 98.2 80 22 140/85 97 03/11/17 08:00 Nasal Cannula 2.0 03/10/17 20:14 21 Intake and Output 03/10/17 03/10/17 03/11/17 15:00 23:00 07:00 Intake Total 600 ml 1300 ml 720 ml Output Total 550 ml 1600 ml 550 ml Balance 50 ml -300 ml 170 ml Exam HEENT exam; supple neck, no JVD. No lymphadenopathy. Midline trachea. No thyromegaly. Patient has a multiple carious teeth. Chest exam; diminished but clear breath sounds. S1-S2 audible, no murmurs. Regular rhythm. Abdomen exam; soft, nontender. No organomegaly. Bowel sounds audible. Extremity exam; no edema. 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 Results Result Diagram: 03/11/17 0623 03/11/17 0623 Results 24 hrs Laboratory Tests Test 03/10/17 12:20 03/10/17 17:42 03/10/17 21:12 03/11/17 02:42 Bedside Glucose 212 177 190 174 Test 03/11/17 06:23 03/11/17 08:23 03/11/17 11:57 White Blood Count 14.0 #H Red Blood Count 3.91 L Hemoglobin 11.2 L Hematocrit 35.0 L Mean Corpuscular Volume 89.5 Mean Corpuscular Hemoglobin 28.6 L Mean Corpuscular Hemoglobin Concent 32.0 Red Cell Distribution Width 13.7 Platelet Count 311 Mean Platelet Volume 10.4 Neutrophils % 88.1 H Lymphocytes % 6.9 L Monocytes % 3.6 Eosinophils % 0.0 Basophils % 0.0 Nucleated Red Blood Cells % 0.0 Neutrophils # 12.3 H Lymphocytes # 1.0 Monocytes # 0.5 Eosinophils # 0.0 Basophils # 0.0 Nucleated Red Blood Cells # 0.0 Sodium Level 143 Potassium Level 4.1 Chloride Level 105 Carbon Dioxide Level 29 Anion Gap 13 Blood Urea Nitrogen 30 #H Creatinine 1.05 H Glucose Level 166 Calcium Level 9.2 Bedside Glucose 185 213 Medications Medications Current Medications Benazepril HCl (Lotensin) 40 mg DAILY PO Last administered on 03/11/17 08:54 ; Admin Dose 40 MG; Start 03/10/17 at 09:00 Cholecalciferol (Vitamin D) 2,000 unit DAILY PO Last administered on 08:53; Admin Dose 2,000 UNIT; Start 03/10/17 at 09:00 Clopidogrel Bisulfate (plaVIX) 75 mg DAILY PO Last administered on 03/11/17 08:53; Admin Dose 75 MG; Start 03/10/17 at 09:00 Hydralazine HCl (Apresoline) 100 mg TID PO Last administered on 03/11/17 12: 12; Admin Dose 100 MG; Start 03/09/17 at 21:00 Atorvastatin Calcium (Lipitor) 10 mg QHS PO Last administered on 03/10/17 21: 04; Admin Dose 10 MG; Start 03/09/17 at 21:00 Ondansetron HCl (Zofran Inj) 4 mg Q6H PRN IV NAUSEA AND/OR VOMITING; Start at 13:30 Acetaminophen (Tylenol Tab) 650 mg Q6H PRN PO PAIN LEVEL 1-3 OR FEVER; Start 03/09/17 at 13:30 Acetaminophen (Tylenol Supp) 650 mg Q6H PRN [place] PAIN LEVEL 1-3 OR FEVER; Start 03/09/17 at 13:30 Morphine Sulfate (morphine) 2 mg Q4H PRN IV SEVERE PAIN LEVEL 7-10; Start at 13:30 Enoxaparin Sodium (Lovenox) 40 mg DAILY SC Last administered on 03/11/17 08: 55; Admin Dose 40 MG; Start 03/10/17 at 09:00 Diagnostic Test (Pha) 1 ea 1 ea 02 XX Last administered on 03/11/17 02:44; Admin Dose 1 EA; Start 03/10/17 at 02:00 Sodium Chloride (NS) 1,000 ml @ 40 mls/hr Q24H IV Last administered on 18:43; Admin Dose 40 MLS/HR; Start 03/09/17 at 13:30 Miscellaneous Information 1 ea NOTE XX ; Start 03/09/17 at 14:00 Glucose (Glutose) 15 gm Q15M PRN PO DECREASED GLUCOSE; Start 03/09/17 at 14:00 Glucose (Glutose) 22.5 gm Q15M PRN PO DECREASED GLUCOSE; Start 03/09/17 at 14: 00 Dextrose (D50w Syringe) 25 ml Q15M PRN IV DECREASED GLUCOSE; Start 03/09/17 at 14:00 Dextrose (D50w Syringe) 50 ml Q15M PRN IV DECREASED GLUCOSE; Start 03/09/17 at 14:00 Glucagon (Glucagen) 1 mg Q15M PRN IM DECREASED GLUCOSE; Start 03/09/17 at 14: 00 Glucose (Glutose) 15 gm Q15M PRN BUCCAL DECREASED GLUCOSE; Start 03/09/17 at 14:00 Methylprednisolone Sodium Succinate (Solu-Medrol) 40 mg Q8 IV Last administered on 03/11/17 05:10; Admin Dose 40 MG; Start 03/09/17 at 22:00 Hydralazine HCl (Apresoline) 10 mg Q4H PRN IV SBP > 160 Last administered on 02:04; Admin Dose 10 MG; Start 03/10/17 at 02:00 Furosemide 40 mg 40 mg DAILY IV Last administered on 03/11/17 08:54; Admin Dose 40 MG; Start 03/10/17 at 09:30 Ceftriaxone Sodium (Rocephin) 50 ml @ 100 mls/hr Q24H IVPB Last administered on 03/11/17 08:53; Admin Dose 100 MLS/HR; Start 03/11/17 at 09:00 Azithromycin (Zithromax) 500 mg Q24H PO Last administered on 03/10/17 13:32; Admin Dose 500 MG; Start 03/10/17 at 14:00 Oxybutynin Chloride (Ditropan Xl) 5 mg QHS PO ; Start 03/11/17 at 21:00 Paroxetine HCl (Paxil) 20 mg HS PO ; Start 03/11/17 at 21:00 Amlodipine Besylate (Norvasc) 5 mg DAILY PO Last administered on 03/11/17t 09: 10; Admin Dose 5 MG; Start 03/11/17 at 09:00 CYNTHIA JC Mar 11, 2017 12:17
[2017-03-11] MEDS: AZITHROMYCIN 250 MG TAB PO SCH (13:17)
[2017-03-11 13:24] LABS: AADO2 Arterial 34.4 mmHg (7.0-24.0); Arterial Base Excess 3.1 mmol/L (-3.0-3); Arterial COHb 0.5 % (0.0-3.0); Arterial Fraction of Oxyhgb 87.5 % (93.0-99.0); Arterial HCO3 29.2 mmol/L (22.0-26.0); Arterial MetHb 0.2 % (0.0-1.5); Arterial Total Hemglobin 13.7 g/dl (12.0-18.0); MODE ROOM AIR
--- NOTE | 2017-03-11 15:49 | DS ---
Date/Time of Note Date/Time of Note DATE: 03/11/17 TIME: 15:40 Discharge Summary Admission/Discharge Info Admit Date/Time Mar 09, 2017 at 11:32 Discharge Date/Time March 11, 2017 Discharge Diagnosis 1. Acute hypercapnic and hypoxic respiratory distress likely secondary to diastolic CHF exacerbation and COPD exacerbation-stable CTA chest shows pulmonary edema, no PE S/p Lasix, DC with Lasix Echo shows preserved EF with diastolic dysfunction Status post BiPAP patient does not use BiPAP at home Pulmonology consultation appreciated No need for further oxygen at this time 2. Sepsis possibly secondary to COPD exacerbation/bronchitis-resolved Status post antibiotics 3. Reported history of CHF Echo shows preserved EF with diastolic dysfunction Continue home meds DC with Lasix 4. Coronary artery disease with PTCA/stents. Continue Plavix/BILLIE inhibitors/Statin. 5. Peripheral vascular disease with venous stasis ulcers. Status post vascular intervention to bilateral lower extremity. -Continue Plavix. 6. Essential hypertension Continue BILLIE inhibitors and hydralazine that patient takes at home We will add and discharge with Norvasc as BP is elevated while on home regimen 7. Hyperlipidemia. Continue statin, LDL at 53 Patient Condition: Good Hospital Course Patient is a 76-year-old female who is also a former smoker with multiple comorbidities including COPD, venous stasis ulcers of left lower extremity with stenting to bilateral femoral arteries a month ago, coronary artery disease with stenting in the past, congestive heart failure, hypertension , dyslipidemia, vitamin D deficiency, degenerative joint disease, who was brought to the emergency room for evaluation of worsening shortness of breath and wheezing started this morning. Patient was diagnosed with hypercapnic and hypoxic respiratory failure and was placed on CPAP. CTA of the chest did show pulmonary vascular congestion the patient was started on Lasix. Patient also received treatment for COPD antibiotics, steroids and nebulizers and was seen by pulmonology. Patient's shortness of breath did improve, of note echo showed a preserved EF with diastolic dysfunction. Of note patient was at one point taking Lasix but did stop due to excessive urination, patient was explained that this was intentional has been given to minimize pulmonary edema. Patient understood and was agreeable to restarting Lasix. Patient was no longer requiring supplemental O2, she no longer reported any shortness of breath on the day of discharge. On day of discharge patient's vitals, labs and physical exam are stable she had no acute complaints and questions answered. Patient blood pressure was slightly elevated and was started on Norvasc in addition to her home regimen, the patient was told that she will be started on additional blood pressure medication. Home Meds Active Scripts Furosemide (Lasix) 40 Mg Tab, 40 MG PO DAILY Y for SHORTNESS OF BREATH, #60 TAB Prov:JOSEPH MCNALLY 03/11/17 Amlodipine Besylate* (Amlodipine Besylate*) 5 Mg Tablet, 5 MG PO DAILY, #60 TAB Prov:JOSEPH MCNALLY 03/11/17 Reported Medications Paroxetine Hcl* (Paxil*) 20 Mg Tablet, 20 MG PO HS, TAB 03/09/17 Oxybutynin Chloride* (Ditropan* XL) 5 Mg Tabsr, 5 MG PO QHS, TAB.SA 03/09/17 Cholecalciferol* (Vitamin D3*) 1,000 Unit Tablet, 2000 UNIT PO DAILY, TAB 03/09/17 Clopidogrel Bisulfate (Clopidogrel) 75 Mg Tablet, 75 MG PO DAILY, #30 TAB 03/09/17 Diclofenac Sodium* (Diclofenac Sodium*) 75 Mg Tablet.dr, 75 MG PO BID, #60 TAB 03/09/17 Simvastatin* (Zocor*) 20 Mg Tablet, 20 MG PO QHS, #30 TAB 03/09/17 Benazepril Hcl* (Benazepril Hcl*) 40 Mg Tablet, 40 MG PO DAILY, #30 TAB 03/09/17 Hydralazine Hcl* (Hydralazine Hcl*) 50 Mg Tab, 100 MG PO TID, #180 TAB 03/09/17 Follow-up Plan F/U WITH YOUR PCP IN 1-2 WEEKS Primary Care Provider Not On Staff Doctor Time spent on discharge: > 30 minutes JOSEPH MCNALLY Mar 11, 2017 15:49
[2017-03-11] MEDS ORDERED: OXYBUTYNIN (XL) 5 MG TAB PO SCH (21:00)
[2017-03-11] MEDS ORDERED: PAROXETINE 20 MG TAB PO SCH (21:00)
== END 2017-03-11 15:30 | disposition home or self-care (01) | DRG 871 ==
LOC: E/R 10:03 → TEL 11:32
PROVIDERS: ADMIT Family Medicine; ATTEND Family Medicine
PROC: 4A133R1 Monitoring of Arterial Saturation, Peripheral, Percutaneous Approach (ICD-10-PCS; principal; 2017-03-09)
DX: A41.9 Sepsis, unspecified organism (principal); I50.33 Acute on chronic diastolic (congestive) heart failure; J96.01 Acute respiratory failure with hypoxia; J96.02 Acute respiratory failure with hypercapnia; J44.1 Chronic obstructive pulmonary disease with (acute) exacerbation; E11.51 Type 2 diabetes mellitus with diabetic peripheral angiopathy without gangrene; G47.33 Obstructive sleep apnea (adult) (pediatric); I11.0 Hypertensive heart disease with heart failure; I25.10 Atherosclerotic heart disease of native coronary artery without angina pectoris; I87.2 Venous insufficiency (chronic) (peripheral); E55.9 Vitamin D deficiency, unspecified; Z86.73 Personal history of transient ischemic attack (TIA), and cerebral infarction without residual deficits; Z87.891 Personal history of nicotine dependence; Z95.5 Presence of coronary angioplasty implant and graft
CPT/HCPCS: 36415; 36600; 71010; 71275; 80048; 80053; 80061; 81001; 82803; 82962; 83036; 83605; 83735; 84100; 84443; 84484; 85025; 85610; 85730; 87040; 87086; 92610; 93005; 93306; 94640; 94660; 94664; 96365; 96375; J0360; J0692; J0696; J1650; J1815; J1940; J2920; J2930; J3370; J7030; J7050; Q9967